=== PATIENT | female | born 1965 | race Two or more races ===

== ENCOUNTER 2017-05-10 00:04 | Emergency (ER) | payer SELFPAY ==
[~2017-05-10] VITALS: Ht 165.1 cm; Wt 65.0 kg
[2017-05-10 00:08] VITALS: BP 116/76
== END 2017-05-10 07:45 | disposition left against medical advice (07) ==
LOC: ER 00:04
DX: M25.521 Pain in right elbow (principal); Z53.21 Procedure and treatment not carried out due to patient leaving prior to being seen by health care provider

== ENCOUNTER 2017-05-11 01:06 | Emergency (ER) | payer SELFPAY ==
[~2017-05-11] VITALS: Ht 167.6 cm; Wt 66.0 kg
[2017-05-11 01:07] VITALS: BP 136/86
== END 2017-05-11 04:06 | disposition left against medical advice (07) ==
LOC: ER 01:06
DX: Z53.21 Procedure and treatment not carried out due to patient leaving prior to being seen by health care provider (principal)

== ENCOUNTER 2017-05-20 22:19 | Emergency (ER) | payer SELFPAY | END 2017-05-21 00:30 | disposition left against medical advice (07) | LOC: ER 22:19 | DX: M79.1 Myalgia (principal); Z53.21 Procedure and treatment not carried out due to patient leaving prior to being seen by health care provider ==